=== PATIENT | female | born 1990 | race American Indian/Alaskan Native ===

== ENCOUNTER → 2016-05-24 | Day surgery (SDC) | payer OTHER ==
[2016-05-24] VITALS (11 sets, daily range): BP systolic 85–112; BP diastolic 58–75
[~2016-05-24] VITALS: Ht 167.6 cm; Wt 63.5 kg
[~2016-05-24] MED LIST: Bupivacaine 0.25% Inj 30ml INJ ONE; Bupivacaine w/Epi 0.25% 30ml Vial INJ ONE; Dexamethasone 4mg/ml vial ONE; DiphenhydrAMINE 50mg/ml Inj IVP PRN; Duramorph PF 10mg/10ml amp IV ONE; Hydromorphone 0.5mg/0.5ml inj IVP PRN; Kenalog-40 1ml Vial ONE; Ketorolac 30mg Inj IM ONE; Ketorolac 30mg Inj IV PRN; LR 1000ml 1,000 ML IVLG SCH; LR 1000ml ONE; Labetalol 5mg/ml 20ml vial IV PRN; Lidocaine 1% 10mg/ml/Epi 0.005mg/ml 30ml vial INJ ONE; Lidocaine 1% MPF 10mg/ml 5ml ONE; MAXALT10 MG PO; Midazolam 2mg/2ml Inj ONE; Morphine Sulfate PF 10 ML ONE; NS Irrig 4000ml IRRIG ONE; Norco 5mg/325mg tab ORAL PRN; Propofol 10mg/ml 20ml IV ONE; ceFAZolin 1gm/50ml Premix 50 ML IV ONE; celeBREX 200mg Cap **SURGERY PATIENTS ONLY ORAL ONE; fentaNYL 100 mcg/2 mL IV ONE; fentaNYL 100 mcg/2 mL IV PRN; oxyCONTIN 20mg tab ORAL ONE
--- NOTE | 2016-05-24 07:01 | Anethesia Preoperative Eval ---
Anesthesia Pre-op PMH/ROS General Date of Evaluation: May 24, 2016 Anesthesiologist: Morris ASA Score: ASA 1 Mallampati Score Class I : Soft palate, uvula, fauces, pillars visible Class II: Soft palate, uvula, fauces visible Class III: Soft palate, base of uvula visible Class IV: Only hard plate visible Mallampati Classification: Class I Surgeon: [facility] Diagnosis: Left knee internal derangement Surgical Procedure: Left knee arthroscopy Anesthesia History: none Family History: no anesthesia problems Allergies: Coded Allergies: No Known Allergies (Unverified , 05/23/16) Medications: see eMAR Past Medical History Cardiovascular: Denies: CAD, HTN, [place], arrhythmia, other, valve dz Pulmonary: Denies: COPD, [place], asthma, other Gastrointestinal/Genitourinary: Denies: CRI, ESRD, GERD, other Neurologic/Psychiatric: Denies: CVA, TIA, dementia, depression/anxiety, other Endocrine: Denies: DM, hypothyroidism, other, steroids HEENT: Denies: [place] (L), [place] (R), cataract (L), cataract (R), glaucoma, other Hematology/Immune: Denies: DVT, anemia, bleeding disorder, other Musculoskeletal/Integumentary: Denies: DDD, DJD, OA, RA, edema, other PSxH Narrative: T&A,. breast augmentation Anesthesia Pre-op Phys. Exam Physician Exam see chart Constitutional: NAD Cardiovascular: RRR Respiratory: CTA Airway Exam Mallampati Score: Class I MO: full ROM: full Teeth: intact Anesthesia Pre-op A/P Labs see chart Risk Assessment & Plan Assessment: ASA I Plan: GA Status Change Before Surgery: No Pre-Antibiotics Drug: Ancef 1g Given Within 1 Hr of Incision: LYNNE Cantu M.D. May 24, 2016 07:01
--- NOTE | 2016-05-24 07:17 | Pre-Procedure Note/Attestation ---
Pre-Procedure Note/Attestation Complete Prior to Procedure Planned Procedure: left Procedure Narrative: knee arthroscopy Indications for Procedure Pre-Operative Diagnosis: left knee internal derangement Attestation I attest that I discussed the nature of the procedure; its benefits; risks and complications; and alternatives (and the risks and benefits of such alternatives ), prior to the procedure, with the patient (or the patient's legal employee relations representative). I attest that, if there was a reasonable possibility of needing a blood transfusion, the patient (or the patient's legal employee relations representative) was given the [facility] standardized written summary, pursuant to the Farshad Alyssa Blood Safety Act ([place] Health and Safety Code # 1645, as amended). I attest that I re-evaluated the patient just prior to the surgery and that there has been no change in the patient's H&P, except as documented below: KAMRAN CONTRERAS May 24, 2016 07:17
--- NOTE | 2016-05-24 07:18 | Operative Note - PDOC ---
Operative Note Operative Note Pre-op Diagnosis: left knee internal derangement Procedure: left knee arthroscopy Post-op Diagnosis: same as pre-op plus Operative Findings: consistent w/pre-op dx studies Anesthesia: MAC Specimen: none Complications: none Condition: stable Estimated Blood Loss: none Implant(s) used?: KAMRAN Garcia May 24, 2016 07:18
--- NOTE | 2016-05-24 08:08 | 48 Hour Post Anesthesia Eval ---
Post Anesthesia Evaluation Procedure: Left knee arthroscopy Date of Evaluation: May 24, 2016 Blood Pressure Systolic: 104 0: 79 Pulse Rate: 75 Respiratory Rate: 16 O2 Sat by Pulse Oximetry: 100 Airway: patent Nausea: No Vomiting: No Pain Intensity: 1 Hydration Status: adequate Cardiopulmonary Status: at baseline Mental Status/LOC: patient returned to baseline Post-Anesthesia Complications: 0 Follow-up care needed: ready to discharge LYNNE MISTRY M.D. May 24, 2016 08:08
--- NOTE | 2016-05-24 08:08 | Immediate Post-Op Evaluation ---
Immediate Post-Op Evalulation Immediate Post-Op Evalulation Procedure: Left knee arthroscopy Date of Evaluation: May 24, 2016 Time of Evaluation: 08:44 IV Fluids: 600 Blood Products: 0 Estimated Blood Loss: min Urinary Output: 0 Blood Pressure Systolic: 98 Blood Pressure Diastolic: 70 Pulse Rate: 56 Respiratory Rate: 16 O2 Sat by Pulse Oximetry: 100 Temperature (Fahrenheit): 98.1 Pain Score (1-10): 0 Nausea: No Vomiting: No Complications 0 Patient Status: awake, reacts, patent, none Hydration Status: adequate Drug: Ancef 1g Given Within 1 Hr of Incision: Yes Time Given: 08:20 LYNNE MISTRY M.D. May 24, 2016 08:08
--- NOTE | 2016-05-24 18:48 | Operative Note - Dictated ---
DATE OF OPERATION: 05/24/2016 PREOPERATIVE DIAGNOSIS: Left knee medial meniscus tear. POSTOPERATIVE DIAGNOSES: 1. Left knee symptomatic medial plica. 2. Left knee intrameniscal degeneration of posterior horn medial meniscus. 3. Hypertrophic synovial tissue in retropatellar space. PROCEDURES: 1. Left knee diagnostic arthroscopy. 2. Synovectomy of medial and lateral patellofemoral compartment. SURGEON: Jeronimo Wall M.D. ANESTHESIA: MAC with local. INDICATION FOR PROCEDURE: The patient is a pleasant female, who has had progressive left knee pain. She had MRI, which showed possible meniscal tear. She failed conservative treatment and had continued pain. She elected to undergo left knee diagnostic arthroscopy with possible meniscectomy and synovectomy. Risks, limitations, expectations, and complications related to procedure were discussed in detail. All questions addressed. DESCRIPTION OF PROCEDURE: An informed consent was obtained. The patient was taken to the operative room and placed under monitored anesthesia control. Tourniquet was applied to the left proximal thigh. Left leg was prepped and draped in a sterile manner. Time-out was performed. Ancef was administered. Under sterile conditions, 20 mL of 0.25% Marcaine plain was injected in the left knee. Portal sites were marked and injected with 1% lidocaine with epinephrine. Esmarch was used to exsanguinate the extremity. Inferolateral stab incision was then made. Trocar was introduced into the knee joint. Of note, when introducing the trocar, there was significant resistance along the lateral gutter. Once the trocar was introduced into the knee joint, systematic tour was performed. There is hypertrophic synovial tissue/medial plica. Medial compartment was entered. No chondral damage. The meniscus was probed and noted to be intact. Hypertrophic synovial tissue in the intercondylar notch was debrided including the ligamentum mucosa to better visualize the anterior cruciate ligament, which was probed and noted to be intact. Lateral compartment was entered and free of any meniscal chondral damage. At this point, the synovectomy of the medial plica was performed. Once adequate synovectomy of the lateral patellofemoral compartment was performed, the instruments were removed. Portal sites was closed with 3-0 Monocryl sutures. Intraarticular injection containing 0.25% percent Marcaine with epinephrine, 30 mg of Toradol, 5 mL of Duramorph, and 40 mg of Kenalog were injected into the knee. Compression dressing was applied. The patient was awoken and taken to the recovery room with stable vital signs. ESTIMATED BLOOD LOSS: Minimal. COMPLICATIONS: None. SPECIMENS: None. IMPLANTS: None. Jeronimo Wall M.D. DR: ERON JOB#: [id number] CC:
== END | disposition home or self-care (01) ==
LOC: SUR 06:23 → EDBD 08:45
DX: M23.322 Other meniscus derangements, posterior horn of medial meniscus, left knee (principal); M67.52 Plica syndrome, left knee; M67.262 Synovial hypertrophy, not elsewhere classified, left lower leg; Z88.3 Allergy status to other anti-infective agents; Z88.5 Allergy status to narcotic agent
CPT/HCPCS: 29876; 81025; 97161; J1100; J1885; J2250; J2274; J2405; J2704; J3010; J3301; J3490; J7120; 94003; 94150